=== PATIENT | male | born 1970 | race Caucasian/White ===

== ENCOUNTER 2023-11-12 10:53 | Emergency (ER) | payer OTHER, SELFPAY ==
[2023-11-12 10:57] VITALS: BP 128/75
[2023-11-12 11:04] VITALS: BMI 30.9
--- NOTE | 2023-11-12 11:10 | ED.GENMED ---
History of Present Illness
General
Chief Complaint: Anal/Rectal Problem
Source: patient
Exam Limitations: none
Time Seen by Provider: 11/12/23 10:55
History of Present Illness
History of Present Illness:
53-year-old male presents with anal pain. He states this started yesterday got worse. He states he was having diarrhea last week for about 9 days. He is currently incarcerated at [facility]. They gave him a suppository there yesterday
without any relief. This started on Bactrim and clindamycin. He states he has a history of an abscess in the similar region. He denies fevers or chills. Denies any foreign bodies in his rectum.
Phy Exam
Physical Exam
Physical Exam:
General: Well-appearing male no acute respiratory distress
Skin: Erythema and swelling noted in the right perianal region. This is fluctuant and tender
Extremities: No cyanosis
Course
Orders/Labs/Results
Orders:
Orders
11/12/23 11:41
Oxycodone/Acetaminophen [Percocet 5/325] 1 tablet PO NOW STA
Vital Signs
Initial and Last Documented VS:
Initial Vital Signs
Temp Pulse Resp BP Pulse Ox
98.4 F 82 18 128/75 99
11/12/23 10:57 11/12/23 10:57 11/12/23 10:57 11/12/23 10:57 11/12/23 10:57
Last Documented Vital Signs
Temp Pulse Resp BP Pulse Ox
98.4 F 82 18 128/75 99
11/12/23 10:57 11/12/23 10:57 11/12/23 10:57 11/12/23 10:57 11/12/23 10:57
MDM/Problems Addressed
Differential Diagnosis Includes:
Perianal pain. No evidence of hemorrhoid. SPECT possible perianal abscess. This seems superficial. Will attempt to drain the area after local anesthesia provided
*Critical Care Note
Total Time (30-74mins, 75-104mins- exclusive of procedures): Not Applicable
Update Note
Update Note:
Perianal abscess was drained using 11 blade scalpel and 1% lidocaine with epinephrine for anesthesia. A large amount of purulent material was expressed from the area. This was then irrigated with soapy water and dried and gauze was placed to catch
any further drainage. He was started on Bactrim and clindamycin by the [facility]. No indication for any change in this medication. Stable for discharge back to [facility].
ED Attending Note
-
Portions of this chart may have been created with voice recognition software.� Occasional wrong word or��sound alike� substitutions may have occurred due to the inherent limitations of voice recognition software.
Discharge Plan
Departure
Patient Disposition: Home (Routine Discharge)
Date of Disposition: 11/12/23
Time of Disposition: 12:30
Patient with high blood pressure during this ER visit?: No
Discharge Problem:
Perianal abscess
Instructions: Anal Abscess and Fistula, Adult (DC)
Referrals:
[facility] [Family Provider] -
Activity Restrictions/Additional Instructions:
Continue current antibiotics. Change dressing if needed. Return if needed
Interventions
Interventions:
*Risk Screen - Suicide Last Done: 11/12/23 10:57
*General Assessment Last Done: 11/12/23 10:57
*Neglect/Abuse Screening Last Done: 11/12/23 10:57
QC-Zdyxbe-Vkadxtrond Assessment Last Done: 11/12/23 11:10
ED-Skin Assessment Last Done: 11/12/23 11:10
Discharge Date and Time
Print Language: [id number]
[2023-11-12] MEDS: PERCOCET 5/325 1 TABLET PO (11:48)
[2023-11-12 12:30] VITALS: BP 122/72
== END 2023-11-12 12:52 | disposition home or self-care (01) ==
LOC: EMR 10:53
PROVIDERS: EMERGENCY PHYSICIAN Student in an Organized Health Care Education/Training Program
DX: K61.0 Anal abscess (principal)
CPT/HCPCS: 46050; 99285